=== PATIENT | male | born 1995 | race Caucasian/White ===

== ENCOUNTER 2016-10-16 14:25 | Emergency (ER) | payer BC, MEDICAID ==
[2016-10-16] MEDS ORDERED: KETOROLAC 60 MG/2 ML VIAL IM ONE (14:59)
[2016-10-16] MEDS ORDERED: MORPHINE 4 MG/ML SYR ONE (14:59)
== END 2016-10-16 16:10 | disposition home or self-care (01) ==
LOC: ER 14:25
DX: S39.012A Strain of muscle, fascia and tendon of lower back, initial encounter (principal); X50.0XXA Overexertion from strenuous movement or load, initial encounter
CPT/HCPCS: 72100; 96372